=== PATIENT | male | born 1970 | race Caucasian/White ===

== ENCOUNTER 2021-10-25 17:22 | Emergency (ER) | payer OTHER ==
[~2021-10-25] VITALS: Ht 182 cm; Wt 107.0 kg
--- NOTE | 2021-10-25 17:54 | ED Upper Extremity ---
General Chief Complaint: Upper Extremity Stated Complaint: WRIST INJURY Source: patient Exam Limitations: no limitations (ÁLVARO RUBIO APRN) History of Present Illness Date Seen by Provider: Oct 25, 2021 Time Seen by Provider: 17:39 Initial Comments This is a well-appearing 51-year-old male who presented to the ER via POV with complaints of right wrist pain. He states that he was at work when his coworker accidentally dropped a bar and landed on his right wrist. This happened approximately 30 minutes prior to arrival. States that when initial injury occurred he had some numbness tingling in his last 2 fingers. His symptoms have since resolved. He is currently rating his wrist pain 7 out of 10 at this time. Has not taken anything prior to arrival. (ÁLVARO RUBIO APRN) Allergies and Home Medications Allergies Coded Allergies: Penicillins (Verified Allergy, Unknown, 10/25/21) Patient Home Medication List Home Medication List Reviewed: Yes (ÁLVARO RUBIO APRN) Review of Systems Constitutional: no symptoms reported EENTM: no symptoms reported Respiratory: no symptoms reported Cardiovascular: no symptoms reported Gastrointestinal: no symptoms reported Genitourinary: no symptoms reported Musculoskeletal: see HPI Skin: no symptoms reported Psychiatric/Neurological: No Symptoms Reported (ÁLVARO RUBIO APRN) Past Faisjas-Aspvmt-Ynyycc Hx Patient Social History Tobacco Use?: No Use of E-Cig and/or Vaping dev: No Substance use?: No Alcohol Use?: No Pt feels they are or have been: No (ÁLVARO RUBIO APRN) Immunizations Up To Date First/Initial COVID19 Vaccinat: 2020 Second COVID19 Vaccination Barrett: 2020 COVID19 Vaccine [employer] Facility Operator: PFIZER (ÁLVARO RUBIO APRN) Physical Exam Vital Signs Vital Signs - First Documented 10/25/21 17:35 Temp 37.0 Pulse 78 B/P (MAP) 131/107 (115) (HANNY WANG DO) Vital Signs Capillary Refill : (ÁLVARO RUBIO APRN) Height, Weight, BMI Height: '" Weight: lbs. oz. kg; BMI Method: General Appearance: WD/WN, no apparent distress HEENT: PERRL/EOMI, normal ENT inspection, TMs normal, pharynx normal Neck: full range of motion, supple, normal inspection Cardiovascular: regular rate, rhythm, no edema, no murmur Respiratory: lungs clear, normal breath sounds, no respiratory distress, no accessory muscle use Elbow/Forearm: normal inspection, normal ROM, bone tenderness (distal radius tenderness of RUE ) Wrist: Yes normal inspection, Yes normal ROM, Yes bone tenderness (distal radius ), Yes pain; No swelling Hand: no evidence of injury, normal ROM, Right, bone tenderness (3rd and 4th metacarpal tenderness ) Neurologic/Psychiatric: no motor/sensory deficits, alert, normal mood/affect, oriented x 3 Skin: normal color, warm/dry Lymphatic: no adenopathy (ÁLVARO RUBIO APRN) Progress/Results/Core Measures Results/Orders Vital Signs/I&O 10/25/21 10/25/21 17:35 19:33 Temp 37.0 37.0 Pulse 78 74 B/P (MAP) 131/107 (115) 127/105 (HANNY WANG DO) Progress Progress Note : Progress Note Placed in wrist splint. To follow up with ortho in [place] as he is leaving area in 2 days. Discharge POC reviewed and he is agreeable with plan. (ÁLVARO RUBIO APRN) Diagnostic Imaging Diagonstic Imaging: Xray Comments [facility], [place] NAME: EILEEN KELLOGG [facility] REC#: [id number] PT STATUS: REG ER : 1970 PHYSICIAN: ÁLVARO RUBIO APRN ADMIT DATE: 10/25/21/ER Signed Date of Exam:10/25/21 FOREARM, RIGHT, 2 VIEWS INDICATION: Injury. EXAMINATION: Right forearm at 6:28 p.m. AP and lateral views were obtained. COMPARISON: There are no prior studies available for comparison. FINDINGS: There is no fracture, dislocation or acute bony abnormality evident. The radiocarpal and elbow joint seem fairly well maintained. The soft tissues are unremarkable. IMPRESSION: There is no evidence for an acute bony abnormality. Dictated by: Dictated on workstation # [id number] Dict: 10/25/21 1839 Trans: 10/25/21 7233 [id number] Interpreted by: MIGUEL VICTOR MD Electronically signed by: MIGUEL VICTOR MD 10/25/21 1859 Comments [facility] [place], [place] NAME: EILEEN KELLOGG [facility] REC#: [id number] PT STATUS: REG ER : 1970 PHYSICIAN: ÁLVARO RUBIO APRN ADMIT DATE: 10/25/21/ER Signed Date of Exam:10/25/21 HAND, RIGHT, 3 VIEWS INDICATION: Injury. EXAMINATION: Right hand at 6:27 p.m. Three views were obtained. COMPARISON: There are no prior studies available for comparison. FINDINGS: There is no fracture, dislocation or acute bony abnormality identified. There is slight widening of the scapholunate space. This finding raises the question of an injury to the scapholunate ligament. If further study is desired, then MRI would be recommended. There is also mild narrowing of the radiocarpal joint. The soft tissues are unremarkable. IMPRESSION: 1. There is no evidence for acute bony abnormality. 2. The slight widening of the scapholunate space does raise the question of an injury to the scapholunate ligament. Recommendations as above. Dictated by: Dictated on workstation # [id number] Dict: 10/25/21 1839 Trans: 10/25/211904 [facility] [id number] Interpreted by: MIGUEL VICTOR MD Electronically signed by: MIGUEL VICTOR MD 10/25/21 190 (ÁLVARO RUBIO APRN) Departure Impression Primary Impression: Scapholunate ligament injury with no instability Disposition: 01 HOME, SELF-CARE Condition: Improved Departure-Patient Inst. Decision time for Depature: 19:06 (ÁLVARO RUBIO APRN) Patient Instructions: Common Wrist Injuries (DC) Add. Discharge Instructions: Plan: 1. May use ice 20 minutes at a time for swelling and pain. 2. Keep your arm elevated as much as possible over the next 72 hours to reduce swelling, which will decrease pain. 3. May take Tylenol or Ibuprofen as needed for pain. 4. Take Tramadol as needed for severe pain as directed per package. 5. Wear splint daily. Follow up with orthopedic provider of choice. 6. Return for any new, concerning, or worsening symptoms. All discharge instructions reviewed with patient and/or family. Voiced understanding. ATTENDING PHYSICIAN NOTE: I WAS PHYSICALLY PRESENT ER PHYSICIAN, BUT I WAS NOT INVOLVED IN ANY DECISION MAKING OR ANY CARE OF THIS PATIENT. (HANNY WANG DO) ÁLVARO RUBIO MANAGER OF [employer] Oct 25, 2021 17:54 HANNY WANG DO Oct 25, 2021 19:57
--- NOTE | 2021-10-25 18:51 | Diagnostic Imaging Report ---
INDICATION: Injury. EXAMINATION: Right forearm at 6:28 p.m. AP and lateral views were obtained. COMPARISON: There are no prior studies available for comparison. FINDINGS: There is no fracture, dislocation or acute bony abnormality evident. The radiocarpal and elbow joint seem fairly well maintained. The soft tissues are unremarkable. IMPRESSION: There is no evidence for an acute bony abnormality. Dictated by: Dictated on workstation # [id number]
--- NOTE | 2021-10-25 18:57 | Diagnostic Imaging Report ---
INDICATION: Injury. EXAMINATION: Right hand at 6:27 p.m. Three views were obtained. COMPARISON: There are no prior studies available for comparison. FINDINGS: There is no fracture, dislocation or acute bony abnormality identified. There is slight widening of the scapholunate space. This finding raises the question of an injury to the scapholunate ligament. If further study is desired, then MRI would be recommended. There is also mild narrowing of the radiocarpal joint. The soft tissues are unremarkable. IMPRESSION: 1. There is no evidence for acute bony abnormality. 2. The slight widening of the scapholunate space does raise the question of an injury to the scapholunate ligament. Recommendations as above. Dictated by: Dictated on workstation # [id number]
[2021-10-25 19:33] VITALS: BP 127/105
== END 2021-10-25 19:35 | disposition home or self-care (01) ==
LOC: ER 17:27
DX: S63.391A Traumatic rupture of other ligament of right wrist, initial encounter (principal); W20.8XXA Other cause of strike by thrown, projected or falling object, initial encounter; Y92.59 Other trade areas as the place of occurrence of the external cause; Y99.0 Civilian activity done for income or pay
CPT/HCPCS: 73090; 73130